=== PATIENT | female | born 1935 | race Caucasian/White ===

== ENCOUNTER 2020-05-10 15:57 | Observation (INO) ==
[2020-05-10] MEDS ORDERED: *HR* OxyCODONE/APAP 5/325 TABLET PO ONE (16:57)
[2020-05-10 19:39] LABS: Basophils % 0.1 %; Hematocrit 37.2 % (35.3-44.9); Hemoglobin 12.2 g/dL (11.5-15.4); Immature Granulocytes % 0.5 % (0-4); Lymphocytes # 0.7 K/mcL (0.6-4.6); Lymphocytes % 4.9 %; Mean Corpuscular HGB Conc 32.8 g/dL (31.6-35.5); Mean Corpuscular Hemoglobin 29.5 pg (28.0-33.3); Mean Corpuscular Volume 89.9 fL (83.0-100.0); Mean Platelet Volume 8.9 fL (9.4-12.4); Monocytes # 0.7 K/mcL (0.0-1.3); Monocytes % 5.4 %; Neutrophils # 12.1 K/mcL (1.6-8.9); Platelet Count 241 K/mcL (140-400); Red Blood Count 4.14 M/mcL (3.82-4.97); Red Cell Distribution Width 12.4 % (11.5-14.5); Segmented Neutrophils % 89.1 %; White Blood Count 13.6 K/mcL (4.3-11.1)
[2020-05-10 20:00] LABS: Alanine Aminotransferase 35 Units/L (7-52); Albumin 4.3 g/dL (3.5-5.7); Albumin/Globulin Ratio 1.5 (1.1-2.2); Alkaline Phosphatase 64 Units/L (34-104); Aspartate Amino Transferase 39 Units/L (13-39); BUN/Creatinine Ratio 29 (6-26); Bilirubin,Total 0.6 mg/dL (0.3-1.0); Blood Urea Nitrogen 28 mg/dL (8-23); Calcium 9.7 mg/dL (8.6-10.3); Carbon Dioxide 28 mEq/L (23-29); Chloride 102 mEq/L (98-107); Globulin 2.9 g/dL (2.4-3.5); Glucose 121 mg/dL (70-105); Osmolality,Calculated 291 (280-300); Potassium 4.1 mEq/L (3.5-5.1); Sodium 137 mEq/L (136-145); Total Protein 7.2 g/dL (6.4-8.9); eGFR For African Americans > 60 (> 60); eGFR For Non-African Americans 54 (> 60)
[2020-05-10] MEDS ORDERED: *HR* FentaNYL (PF) 100 MCG/2 ML VIAL IVP ONE (20:14)
[2020-05-10] MEDS ORDERED: Naloxone 0.4 MG/ML INJ IVP PRN (22:20)
[2020-05-10] MEDS ORDERED: Ondansetron ODT 4 MG TAB.RAPDIS SL PRN (22:20)
[2020-05-10] MEDS: 0.9 % Sodium Chloride 1,000 ML IVC SCH (23:55)
[2020-05-11 01:13] LABS: Basophils % 0.3 %; Eosinophils % 0.3 %; Hemoglobin 11.4 g/dL (11.5-15.4); Immature Granulocytes % 0.3 % (0-4); Lymphocytes # 0.8 K/mcL (0.6-4.6); Lymphocytes % 6.7 %; Mean Corpuscular HGB Conc 31.7 g/dL (31.6-35.5); Mean Corpuscular Hemoglobin 28.9 pg (28.0-33.3); Mean Corpuscular Volume 91.4 fL (83.0-100.0); Mean Platelet Volume 8.9 fL (9.4-12.4); Monocytes # 0.6 K/mcL (0.0-1.3); Monocytes % 5.3 %; Neutrophils # 10.2 K/mcL (1.6-8.9); Platelet Count 200 K/mcL (140-400); Red Blood Count 3.94 M/mcL (3.82-4.97); Red Cell Distribution Width 12.7 % (11.5-14.5); Segmented Neutrophils % 87.1 %; White Blood Count 11.7 K/mcL (4.3-11.1)
[2020-05-11 01:14] LABS: INR 1.2; Prothrombin Time 13.7 Seconds (9.4-12.1)
[2020-05-11 01:17] LABS: Bilirubin,Urine Negative (Negative); Blood,Urine Negative (Negative); Clarity,Urine Clear (Clear); Color,Urine Yellow (Yellow); Glucose,Urine (UA) Normal (Normal); Hyaline Casts,Urine Few per lpf (None Seen); Ketones,Urine Negative (Negative); Leukocyte Esterase,Urine Negative (Negative); Mucus,Urine Few per lpf (None-Few); Nitrite,Urine Negative (Negative); PH,Urine 5.5 pH Units (5.0-8.0); Protein,Urine 50 mg/dL (Neg-Trace); RBC,Urine 0-3 per hpf (0-3); Specific Gravity,Urine > 1.030 (1.010-1.025); Urobilinogen,Urine Normal (Normal); WBC,Urine 0-3 per hpf (0-3)
[2020-05-11 01:29] LABS: BUN/Creatinine Ratio 32 (6-26); Blood Urea Nitrogen 27 mg/dL (8-23); Calcium 9.1 mg/dL (8.6-10.3); Carbon Dioxide 23 mEq/L (23-29); Chloride 104 mEq/L (98-107); Glucose 119 mg/dL (70-105); Osmolality,Calculated 286 (280-300); Phosphorous 2.9 mg/dL (2.7-4.5); Potassium 4.2 mEq/L (3.5-5.1); Sodium 135 mEq/L (136-145); eGFR For African Americans > 60 (> 60); eGFR For Non-African Americans > 60 (> 60)
[2020-05-11 01:41] LABS: Thyroid Stimulating Hormone 7.026 mcIU/mL (0.340-5.600)
[2020-05-11 02:39] LABS: Folate > 22.3 ng/mL (3.0-16.0); Vitamin B12 964 pg/mL (250-1100); Vitamin D 25 Hydroxy 39 ng/mL (30-80)
[2020-05-11] MEDS: tiZANidine 4 MG TABLET PO SCH ×3 (08:08→22:09)
[2020-05-11] MEDS: Gabapentin 400 MG CAPSULE PO SCH ×3 (08:08→22:08)
[2020-05-11] MEDS: traZODone 50 MG TABLET PO SCH (08:09)
[2020-05-11 09:35] LABS: Triiodothyronine (T3) Free 2.52 pg/mL (2.50-3.90)
[2020-05-11] MEDS: Mirtazapine 15 MG TABLET PO SCH (22:08)
[2020-05-11] MEDS: 0.9 % Sodium Chloride 1,000 ML IVC SCH (22:10)
[2020-05-12 06:09] LABS: Basophils % 0.3 %; Eosinophils # 0.1 K/mcL (0.0-0.6); Eosinophils % 0.7 %; Hematocrit 32.3 % (35.3-44.9); Hemoglobin 10.2 g/dL (11.5-15.4); Immature Granulocytes % 0.4 % (0-4); Lymphocytes # 1.2 K/mcL (0.6-4.6); Lymphocytes % 10.1 %; Mean Corpuscular HGB Conc 31.6 g/dL (31.6-35.5); Mean Corpuscular Hemoglobin 29.1 pg (28.0-33.3); Mean Corpuscular Volume 92.3 fL (83.0-100.0); Mean Platelet Volume 9.4 fL (9.4-12.4); Monocytes # 0.8 K/mcL (0.0-1.3); Monocytes % 6.8 %; Neutrophils # 9.3 K/mcL (1.6-8.9); Platelet Count 197 K/mcL (140-400); Segmented Neutrophils % 81.7 %; White Blood Count 11.4 K/mcL (4.3-11.1)
[2020-05-12 06:28] LABS: BUN/Creatinine Ratio 31 (6-26); Blood Urea Nitrogen 28 mg/dL (8-23); Calcium 8.9 mg/dL (8.6-10.3); Carbon Dioxide 26 mEq/L (23-29); Chloride 104 mEq/L (98-107); Glucose 103 mg/dL (70-105); Osmolality,Calculated 288 (280-300); Potassium 4.6 mEq/L (3.5-5.1); Sodium 136 mEq/L (136-145); eGFR For African Americans > 60 (> 60); eGFR For Non-African Americans > 60 (> 60)
[2020-05-12] MEDS ORDERED: NON-FORMULARY MEDICATION 1 EACH EACH (Cyanocobalamin (Vitamin B-12) [Vitamin B-12] 100 MCG PO SCH (09:00)
[2020-05-12] MEDS: Gabapentin 400 MG CAPSULE PO SCH ×3 (10:12→20:52)
[2020-05-12] MEDS: Cholecalciferol (D-3) 1,000 UNIT (25MCG) TABLET PO SCH (10:12)
[2020-05-12] MEDS: tiZANidine 4 MG TABLET PO SCH ×3 (10:13→20:52)
[2020-05-12] MEDS: traZODone 50 MG TABLET PO SCH (10:13)
[2020-05-12] MEDS: Acetaminophen 325 MG TABLET PO PRN ×2 (10:16→20:51)
[2020-05-12] MEDS: Mirtazapine 15 MG TABLET PO SCH (20:52)
[2020-05-13 01:58] LABS: Hematocrit 27.2 % (35.3-44.9); Hemoglobin 8.8 g/dL (11.5-15.4); Mean Corpuscular HGB Conc 32.4 g/dL (31.6-35.5); Mean Corpuscular Hemoglobin 29.5 pg (28.0-33.3); Mean Corpuscular Volume 91.3 fL (83.0-100.0); Mean Platelet Volume 9.3 fL (9.4-12.4); Platelet Count 155 K/mcL (140-400); Red Blood Count 2.98 M/mcL (3.82-4.97); Red Cell Distribution Width 12.6 % (11.5-14.5); White Blood Count 8.7 K/mcL (4.3-11.1)
[2020-05-13 02:17] LABS: BUN/Creatinine Ratio 28 (6-26); Blood Urea Nitrogen 19 mg/dL (8-23); Calcium 8.4 mg/dL (8.6-10.3); Carbon Dioxide 23 mEq/L (23-29); Chloride 103 mEq/L (98-107); Glucose 88 mg/dL (70-105); Osmolality,Calculated 276 (280-300); Potassium 4.1 mEq/L (3.5-5.1); Sodium 132 mEq/L (136-145); eGFR For African Americans > 60 (> 60); eGFR For Non-African Americans > 60 (> 60)
[2020-05-13] MEDS ORDERED: Isovue-370 500 ML BOTTLE IVP ONE (07:48)
[2020-05-13] MEDS: Cholecalciferol (D-3) 1,000 UNIT (25MCG) TABLET PO SCH (08:05)
[2020-05-13] MEDS: traZODone 50 MG TABLET PO SCH (08:05)
[2020-05-13] MEDS: tiZANidine 4 MG TABLET PO SCH ×3 (08:05→21:10)
[2020-05-13] MEDS: Gabapentin 400 MG CAPSULE PO SCH ×3 (08:06→21:10)
[2020-05-13] MEDS: Pantoprazole 40 MG VIAL IVP SCH (17:23)
[2020-05-13] MEDS: Mirtazapine 15 MG TABLET PO SCH (21:10)
[2020-05-13] MEDS: Acetaminophen 325 MG TABLET PO PRN (21:15)
[2020-05-14] MEDS: Pantoprazole 40 MG VIAL IVP SCH ×2 (05:04→18:02)
[2020-05-14 05:32] LABS: Hematocrit 28.8 % (35.3-44.9); Hemoglobin 9.4 g/dL (11.5-15.4); Mean Corpuscular HGB Conc 32.6 g/dL (31.6-35.5); Mean Platelet Volume 9.8 fL (9.4-12.4); Platelet Count 216 K/mcL (140-400); Red Blood Count 3.13 M/mcL (3.82-4.97); Red Cell Distribution Width 12.9 % (11.5-14.5)
[2020-05-14 05:52] LABS: BUN/Creatinine Ratio 23 (6-26); Blood Urea Nitrogen 16 mg/dL (8-23); Calcium 8.5 mg/dL (8.6-10.3); Carbon Dioxide 25 mEq/L (23-29); Chloride 106 mEq/L (98-107); Glucose 86 mg/dL (70-105); Osmolality,Calculated 286 (280-300); Potassium 3.7 mEq/L (3.5-5.1); Sodium 138 mEq/L (136-145); eGFR For African Americans > 60 (> 60); eGFR For Non-African Americans > 60 (> 60)
[2020-05-14] MEDS: traZODone 50 MG TABLET PO SCH (07:11)
[2020-05-14] MEDS: tiZANidine 4 MG TABLET PO SCH ×2 (07:11→16:10)
[2020-05-14] MEDS: Cholecalciferol (D-3) 1,000 UNIT (25MCG) TABLET PO SCH (07:12)
[2020-05-14] MEDS: Gabapentin 400 MG CAPSULE PO SCH ×2 (07:12→16:09)
[2020-05-15 01:04] LABS: Hematocrit 32.9 % (35.3-44.9); Hemoglobin 10.6 g/dL (11.5-15.4); Mean Corpuscular HGB Conc 32.2 g/dL (31.6-35.5); Mean Corpuscular Hemoglobin 29.6 pg (28.0-33.3); Mean Corpuscular Volume 91.9 fL (83.0-100.0); Mean Platelet Volume 9.5 fL (9.4-12.4); Platelet Count 286 K/mcL (140-400); Red Blood Count 3.58 M/mcL (3.82-4.97); Red Cell Distribution Width 12.5 % (11.5-14.5); White Blood Count 10.7 K/mcL (4.3-11.1)
[2020-05-15 01:22] LABS: BUN/Creatinine Ratio 26 (6-26); Blood Urea Nitrogen 20 mg/dL (8-23); Calcium 9.4 mg/dL (8.6-10.3); Carbon Dioxide 24 mEq/L (23-29); Chloride 101 mEq/L (98-107); Glucose 98 mg/dL (70-105); Osmolality,Calculated 281 (280-300); Sodium 134 mEq/L (136-145); eGFR For African Americans > 60 (> 60); eGFR For Non-African Americans > 60 (> 60)
[2020-05-15] MEDS: tiZANidine 4 MG TABLET PO SCH ×3 (01:30→18:02)
[2020-05-15] MEDS: Gabapentin 400 MG CAPSULE PO SCH ×3 (01:30→18:02)
[2020-05-15] MEDS: Mirtazapine 15 MG TABLET PO SCH (01:31)
[2020-05-15] MEDS: Pantoprazole 40 MG VIAL IVP SCH ×2 (06:09→18:02)
[2020-05-15] MEDS: traZODone 50 MG TABLET PO SCH (08:45)
[2020-05-15] MEDS: Cholecalciferol (D-3) 1,000 UNIT (25MCG) TABLET PO SCH (08:48)
[2020-05-15] MEDS ORDERED: *HR* Propofol 200 MG/20 ML VIAL IVP ONE ×2 (12:34→14:24)
[2020-05-15] MEDS ORDERED: Lidocaine -MPF 2% 2 ML VIAL ONE ×2 (12:35→14:24)
[2020-05-15 13:34] VITALS: BP 157/79
== END 2020-05-15 18:40 | disposition other institution (70) ==
LOC: EMEROOARM 15:57 → 3NENU 15:57 → SUATTDRO 22:14 → 3NENU 22:45
PROVIDERS: ADMIT Internal Medicine; ATTEND Internal Medicine